=== PATIENT | male | born 1985 | race African-American/Black ===

== ENCOUNTER 2019-07-28 11:59 | Inpatient (IN) | payer MEDICAID ==
[2019-07-28] MEDS: SOD CHLORIDE 0.9% 1,000 ML IV ×3 (13:21→18:36)
[2019-07-28] MEDS: HYDROmorphONE 1 MG/ML SYG IV ×2 (13:21→15:12)
[2019-07-28] MEDS: CEFTRIAXONE 1 GM/50 ML (PMX) 50 ML IVPB (13:21)
[2019-07-28] MEDS: ONDANSETRON 4 MG INJ IV (13:21)
[2019-07-28 13:36] LABS: ADD MAN DIFF? NO
[2019-07-28 13:38] LABS: WHITE BLOOD COUNT 18.3 10^3/ul (4.8-10.8)
[2019-07-28 13:38] LABS: ABNORMAL IP MESSAGE 1; BASOPHILS % 0.2 % (0.0-2.0); EOSINOPHILS % 0.2 % (0.0-7.0); HEMATOCRIT 44.6 % (42.0-52.0); LYMPHOCYTES # 1.7 10^3/ul (0.8-2.9); LYMPHOCYTES % 9.3 % (15.0-51.0); MEAN CORPUSCULAR HEMOGLOBIN 31.7 pg (29.0-33.0); MEAN CORPUSCULAR HGB CONC 33.6 g/dl (32.0-37.0); MEAN CORPUSCULAR VOLUME 94.3 fl (82.0-101.0); MEAN PLATELET VOLUME 10.4 fl (7.4-10.4); MONOCYTE # 1.5 10^3/ul (0.3-0.9); MONOCYTES % 8.4 % (0.0-11.0); NEUTROPHIL # 14.9 10^3/ul (1.6-7.5); NEUTROPHILS % 81.2 % (39.0-77.0); PLATELET COUNT 322 10^3/UL (140-415); POSITIVE DIFF @See below; RED BLOOD COUNT 4.73 10^6/ul (4.70-6.10); RED CELL DISTRIBUTION WIDTH 12.8 % (11.5-14.5)
[2019-07-28 13:56] LABS: ALANINE AMINOTRANSFERASE 30 IU/L (13-69); ALBUMIN 3.8 g/dl (3.3-4.9); ALBUMIN/GLOBULIN RATIO 0.95; ALKALINE PHOSPHATASE 74 IU/L (42-121); ANION GAP 10 (5-13); ASPARTATE AMINO TRANSFERASE 20 IU/L (15-46); BILIRUBIN,INDIRECT 0.6 mg/dl (0-1.1); BILIRUBIN,TOTAL 0.6 mg/dl (0.2-1.3); BLOOD UREA NITROGEN 7 mg/dl (7-20); CALCIUM 9.3 mg/dl (8.4-10.2); CARBON DIOXIDE 27 mmol/L (21-31); CHLORIDE 103 mmol/L (97-110); CREATININE 0.86 mg/dl (0.61-1.24); Estimated GFR > 60 mL/min (>60); GLUCOSE 95 mg/dl (70-220); LIPASE 18 U/L (23-300); POTASSIUM 3.7 mmol/L (3.5-5.1); SODIUM 140 mmol/L (135-144); TOTAL PROTEIN 7.8 g/dl (6.1-8.1)
[2019-07-28] MEDS: SOD CHLORIDE 0.9% 100 ML (14:28)
[2019-07-28] MEDS: IOHEXOL 300MG/ML 150 ML BTL (14:29)
[2019-07-28] MEDS: metroNIDAZOLE 500 MG/NS (PMX) 100 ML IVPB (15:11)
[2019-07-28 15:16] LABS: INR 1.07; PT RATIO 1.1
[2019-07-28 15:17] LABS: PARTIAL THROMBOPLASTIN TIME 30.9 Sec (23.0-35.0)
[2019-07-28] MEDS ORDERED: hydrALAzine 20 MG INJ IV (15:30)
[2019-07-28] MEDS ORDERED: LORAZEPAM 2 MG INJ IV (15:30)
[2019-07-28] MEDS ORDERED: VANCOMYCIN IV PER PHARMACY XX (15:30)
[2019-07-28] MEDS ORDERED: ACETAMINOPHEN 325 MG TAB PO (15:30)
[2019-07-28] MEDS ORDERED: NACL 0.9% 3 ML SYG IV (15:30)
[2019-07-28] MEDS ORDERED: NITROGLYCERIN (SL) 0.4 MG TAB SL (15:30)
[2019-07-28] MEDS ORDERED: ALBUTEROL/IPRATROPIUM (NEB) 3 ML AMP HHN (15:30)
[2019-07-28] MEDS ORDERED: DOCUSATE SODIUM 100 MG CAP PO (15:30)
[2019-07-28] MEDS ORDERED: ONDANSETRON 4 MG INJ IV (15:30)
[2019-07-28] MEDS ORDERED: MAGNESIUM HYDROXIDE 30ML CUP PO (15:30)
[2019-07-28] MEDS: VANCOMYCIN HCL 2 GM in SOD CHLORIDE 0.9% 500 ML IVPB (16:32)
[2019-07-28 16:35] LABS: FREE T4 (FREE THYROXINE) 1.17 ng/dl (0.79-2.35)
[2019-07-28] MEDS: morphine 2 MG INJ IV (17:41)
[2019-07-28] MEDS ORDERED: PIPER-TAZO 3.375 GM IV (PMX) 100 ML IVPB (18:00)
[2019-07-28] MEDS: HYDROCODONE/APAP (5/325) TAB PO (18:36)
[2019-07-28] MEDS ORDERED: MIDAZOLAM 1 MG/ML 2 ML INJ (20:52)
[2019-07-28] MEDS ORDERED: PROPOFOL 20 ML (20:52)
[2019-07-28] MEDS: HYDROmorphONE 0.5 MG/0.5 ML SYG IV (20:56)
[2019-07-28] MEDS ORDERED: DEXAMETHASONE 4 MG/ML 5 ML INJ (22:12)
[2019-07-28] MEDS ORDERED: ONDANSETRON 4 MG INJ (22:12)
[2019-07-28] MEDS ORDERED: SUGAMMADEX SODIUM 200 MG/2 ML VIAL IV (22:12)
[2019-07-28] MEDS ORDERED: METOCLOPRAMIDE 10 MG INJ (22:12)
[2019-07-28] MEDS ORDERED: KETOROLAC 30 MG INJ (22:12)
[2019-07-28] MEDS ORDERED: MEPERIDINE 100 MG INJ (22:28)
[2019-07-29] MEDS: HEPARIN 5,000 UNIT/1 ML VIAL SC ×3 (01:20→20:59)
[2019-07-29] MEDS: PIPER-TAZO 3.375 GM IV (PMX) 100 ML IVPB ×5 (01:21→20:59)
[2019-07-29] MEDS: SOD CHLORIDE 0.9% 1,000 ML IV ×3 (01:21→11:26)
[2019-07-29] MEDS: morphine 2 MG INJ IV ×3 (02:05→11:44)
[2019-07-29] MEDS: VANCOMYCIN HCL 2 GM in SOD CHLORIDE 0.9% 500 ML IVPB ×2 (04:47→16:31)
[2019-07-29 05:47] LABS: HEMATOCRIT 42.3 % (42.0-52.0); HEMOGLOBIN 14.3 g/dl (14.0-18.0); MEAN CORPUSCULAR HEMOGLOBIN 31.9 pg (29.0-33.0); MEAN CORPUSCULAR HGB CONC 33.8 g/dl (32.0-37.0); MEAN CORPUSCULAR VOLUME 94.4 fl (82.0-101.0); MEAN PLATELET VOLUME 10.3 fl (7.4-10.4); PLATELET COUNT 301 10^3/UL (140-415); POSITIVE DIFF @See below; RED BLOOD COUNT 4.48 10^6/ul (4.70-6.10); RED CELL DISTRIBUTION WIDTH 13.1 % (11.5-14.5)
[2019-07-29 05:47] LABS: WHITE BLOOD COUNT 21.3 10^3/ul (4.8-10.8)
[2019-07-29 05:54] LABS: ADD MAN DIFF? YES
[2019-07-29 06:02] LABS: HEMOGLOBIN A1C 5.1 % (0-5.9)
[2019-07-29 06:30] LABS: ANION GAP 8 (5-13); CALCIUM 8.6 mg/dl (8.4-10.2); CARBON DIOXIDE 25 mmol/L (21-31); CHLORIDE 107 mmol/L (97-110); CREATININE 0.75 mg/dl (0.61-1.24); Estimated GFR > 60 mL/min (>60); GLUCOSE 133 mg/dl (70-220); MAGNESIUM 2.2 mg/dl (1.7-2.5); PHOSPHORUS 3.1 mg/dl (2.5-4.9); POTASSIUM 4.5 mmol/L (3.5-5.1); SODIUM 140 mmol/L (135-144)
[2019-07-29 06:31] LABS: BLOOD UREA NITROGEN 9 mg/dl (7-20)
[2019-07-29 06:41] LABS: THYROID STIMULATING HORMONE 0.955 MIU/L (0.465-4.680)
[2019-07-29 06:44] LABS: CHOL/HDL RATIO 3.4 RATIO; HDL CHOLESTEROL 41 mg/dl (28-63); LDL CHOLESTEROL,CALCULATED 82 mg/dl; TRIGLYCERIDES 90 mg/dl (0-149)
[2019-07-29 06:44] LABS: CHOLESTEROL 141 mg/dl (100-200)
[2019-07-29 07:30] LABS: ADD UMIC YES; UR ASCORBIC ACID NEGATIVE (NEGATIVE); UR BACTERIA FEW /HPF (NONE SEEN); UR BILIRUBIN (Dip) NEGATIVE (NEGATIVE); UR BLOOD (Dip) NEGATIVE (NEGATIVE); UR CLARITY CLEAR (CLEAR); UR COLOR YELLOW (YELLOW); UR GLUCOSE (Dip) NEGATIVE (NEGATIVE); UR KETONES (Dip) 2+ mg/dL (NEGATIVE); UR LEUKOCYTE ESTERASE (Dip) NEGATIVE Leu/ul (NEGATIVE); UR MUCUS FEW /HPF (NONE SEEN); UR NITRITE (Dip) NEGATIVE (NEGATIVE); UR RBC 3 /HPF (0-5); UR SPECIFIC GRAVITY (Dip) 1.046 (1.003-1.030); UR TOTAL PROTEIN (Dip) 1+ mg/dl (NEGATIVE); UR UROBILINOGEN (Dip) NEGATIVE (NEGATIVE); UR WBC 2 /HPF (0-5)
[2019-07-29 07:35] LABS: ANISOCYTOSIS 1+ (0-0); BAND NEUTROPHILS #M 3.4 10^3/ul (0.0-0.6); BAND NEUTROPHILS % (M) 16 % (0-4); BURR CELLS 2+ (0-0); LYMPHOCYTES #M 0.8 10^3/ul (0.8-2.9); LYMPHOCYTES % (M) 4 % (15-51); MONOCYTE #M 0.2 10^3/ul (0.3-0.9); MONOCYTES % (M) 1 % (0-11); PLATELET ESTIMATE NORMAL; POIKILOCYTOSIS 2+ (0-0); POLYCHROMASIA 1+ (0-0); REACTIVE LYMPHOCYTES #M 0.2 10^3/ul (0.0-0.0); REACTIVE LYMPHOCYTES% (M) 1 % (0-0); SEG NEUT #M 17.3 10^3/ul (1.6-7.5); SEGMENTED NEUTROPHILS (M) % 78 % (39-77); SMUDGE%M 1 % (0-0)
[2019-07-29] MEDS: HYDROCODONE/APAP (5/325) TAB PO (13:11)
[2019-07-29] MEDS: morphine 4 MG/ML VIAL IV (15:23)
[2019-07-29] MEDS: KETOROLAC 30 MG INJ IV ×2 (17:49→22:02)
[2019-07-30] MEDS: PIPER-TAZO 3.375 GM IV (PMX) 100 ML IVPB ×4 (02:43→20:31)
[2019-07-30 03:17] LABS: ADD MAN DIFF? NO
[2019-07-30 03:18] LABS: BASOPHILS % 0.2 % (0.0-2.0); HEMATOCRIT 38.5 % (42.0-52.0); HEMOGLOBIN 12.8 g/dl (14.0-18.0); LYMPHOCYTES % 10.7 % (15.0-51.0); MEAN CORPUSCULAR HEMOGLOBIN 31.6 pg (29.0-33.0); MEAN CORPUSCULAR HGB CONC 33.2 g/dl (32.0-37.0); MEAN CORPUSCULAR VOLUME 95.1 fl (82.0-101.0); MEAN PLATELET VOLUME 10.7 fl (7.4-10.4); MONOCYTE # 1.3 10^3/ul (0.3-0.9); MONOCYTES % 6.6 % (0.0-11.0); NEUTROPHIL # 15.6 10^3/ul (1.6-7.5); NEUTROPHILS % 81.9 % (39.0-77.0); PLATELET COUNT 325 10^3/UL (140-415); RED BLOOD COUNT 4.05 10^6/ul (4.70-6.10); RED CELL DISTRIBUTION WIDTH 12.9 % (11.5-14.5)
[2019-07-30 03:36] LABS: ANION GAP 5 (5-13); BLOOD UREA NITROGEN 12 mg/dl (7-20); CALCIUM 8.6 mg/dl (8.4-10.2); CARBON DIOXIDE 27 mmol/L (21-31); CHLORIDE 108 mmol/L (97-110); CREATININE 0.82 mg/dl (0.61-1.24); Estimated GFR > 60 mL/min (>60); GLUCOSE 126 mg/dl (70-220); SODIUM 140 mmol/L (135-144)
[2019-07-30 04:02] LABS: VANCOMYCIN,TROUGH 8.3 ug/ml (10.0-20.0)
[2019-07-30] MEDS: VANCOMYCIN HCL 2 GM in SOD CHLORIDE 0.9% 500 ML IVPB (04:06)
[2019-07-30] MEDS: KETOROLAC 30 MG INJ IV ×2 (04:06→10:00)
[2019-07-30] MEDS: HYDROmorphONE 0.5 MG/0.5 ML SYG IV ×3 (07:54→14:21)
[2019-07-30] MEDS: HEPARIN 5,000 UNIT/1 ML VIAL SC ×2 (08:37→20:34)
[2019-07-30] MEDS: HYDROCODONE/APAP (5/325) TAB PO (10:15)
[2019-07-30] MEDS: VANCOMYCIN 1.5 GM/NS 250 ML 250 ML IVPB ×2 (11:32→21:17)
[2019-07-30] MEDS ORDERED: VANCOMYCIN HCL 2 GM in SOD CHLORIDE 0.9% 500 ML IVPB (12:00)
[2019-07-30] MEDS ORDERED: HYDROmorphONE 1 MG/ML SYG IV (16:00)
[2019-07-30] MEDS: HYDROCODONE/APAP (7.5/325) TAB PO ×2 (16:04→20:16)
[2019-07-30] MEDS: HYDROmorphONE 1 MG/ML SYG IV ×2 (18:30→22:00)
[2019-07-31] MEDS: PIPER-TAZO 3.375 GM IV (PMX) 100 ML IVPB ×2 (03:31→09:29)
[2019-07-31] MEDS: HYDROmorphONE 1 MG/ML SYG IV ×6 (03:31→23:57)
[2019-07-31] MEDS: VANCOMYCIN 1.5 GM/NS 250 ML 250 ML IVPB ×2 (04:15→12:11)
[2019-07-31] MEDS: HYDROCODONE/APAP (7.5/325) TAB PO ×2 (04:47→21:44)
[2019-07-31 05:53] LABS: ADD MAN DIFF? NO
[2019-07-31 06:02] LABS: BASOPHIL # 0.1 10^3/ul (0.0-0.1); BASOPHILS % 0.5 % (0.0-2.0); EOSINOPHILS # 0.1 10^3/ul (0.0-0.5); EOSINOPHILS % 0.8 % (0.0-7.0); HEMATOCRIT 41.5 % (42.0-52.0); HEMOGLOBIN 13.5 g/dl (14.0-18.0); LYMPHOCYTES # 3.3 10^3/ul (0.8-2.9); MEAN CORPUSCULAR HEMOGLOBIN 31.3 pg (29.0-33.0); MEAN CORPUSCULAR HGB CONC 32.5 g/dl (32.0-37.0); MEAN CORPUSCULAR VOLUME 96.1 fl (82.0-101.0); MEAN PLATELET VOLUME 10.3 fl (7.4-10.4); MONOCYTES % 9.8 % (0.0-11.0); NEUTROPHIL # 5.3 10^3/ul (1.6-7.5); NEUTROPHILS % 54.4 % (39.0-77.0); PLATELET COUNT 343 10^3/UL (140-415); RED BLOOD COUNT 4.32 10^6/ul (4.70-6.10)
[2019-07-31 06:02] LABS: WHITE BLOOD COUNT 9.7 10^3/ul (4.8-10.8)
[2019-07-31 07:41] LABS: ANION GAP 5 (5-13); BLOOD UREA NITROGEN 14 mg/dl (7-20); CALCIUM 8.3 mg/dl (8.4-10.2); CARBON DIOXIDE 25 mmol/L (21-31); CHLORIDE 111 mmol/L (97-110); CREATININE 0.98 mg/dl (0.61-1.24); Estimated GFR > 60 mL/min (>60); GLUCOSE 94 mg/dl (70-220); POTASSIUM 3.7 mmol/L (3.5-5.1); SODIUM 141 mmol/L (135-144)
[2019-07-31] MEDS: HEPARIN 5,000 UNIT/1 ML VIAL SC ×2 (09:32→20:15)
[2019-07-31 12:02] LABS: VANCOMYCIN,TROUGH 17.1 ug/ml (10.0-20.0)
[2019-07-31] MEDS: HYDROCODONE/APAP (5/325) TAB PO (13:16)
[2019-07-31] MEDS ORDERED: LOPERAMIDE 2 MG CAP PO (14:30)
[2019-08-01] MEDS: HYDROmorphONE 1 MG/ML SYG IV ×3 (04:32→15:59)
[2019-08-01 05:49] LABS: ADD MAN DIFF? NO
[2019-08-01] MEDS: LEVOFLOXACIN 750 MG TABLET PO (06:01)
[2019-08-01 06:05] LABS: WHITE BLOOD COUNT 8.8 10^3/ul (4.8-10.8)
[2019-08-01 06:05] LABS: BASOPHILS % 0.3 % (0.0-2.0); EOSINOPHILS # 0.1 10^3/ul (0.0-0.5); EOSINOPHILS % 1.1 % (0.0-7.0); LYMPHOCYTES # 3.3 10^3/ul (0.8-2.9); LYMPHOCYTES % 37.7 % (15.0-51.0); MEAN CORPUSCULAR HEMOGLOBIN 31.6 pg (29.0-33.0); MEAN CORPUSCULAR HGB CONC 33.3 g/dl (32.0-37.0); MEAN CORPUSCULAR VOLUME 94.7 fl (82.0-101.0); MEAN PLATELET VOLUME 10.5 fl (7.4-10.4); MONOCYTE # 0.9 10^3/ul (0.3-0.9); MONOCYTES % 10.4 % (0.0-11.0); NEUTROPHIL # 4.4 10^3/ul (1.6-7.5); NEUTROPHILS % 49.8 % (39.0-77.0); PLATELET COUNT 352 10^3/UL (140-415); RED BLOOD COUNT 4.75 10^6/ul (4.70-6.10); RED CELL DISTRIBUTION WIDTH 12.7 % (11.5-14.5)
[2019-08-01 06:25] LABS: ANION GAP 6 (5-13); BLOOD UREA NITROGEN 10 mg/dl (7-20); CALCIUM 8.9 mg/dl (8.4-10.2); CARBON DIOXIDE 27 mmol/L (21-31); CHLORIDE 106 mmol/L (97-110); CREATININE 0.91 mg/dl (0.61-1.24); Estimated GFR > 60 mL/min (>60); GLUCOSE 93 mg/dl (70-220); POTASSIUM 3.5 mmol/L (3.5-5.1); SODIUM 139 mmol/L (135-144)
[2019-08-01] MEDS: HYDROCODONE/APAP (7.5/325) TAB PO ×2 (08:32→13:55)
[2019-08-01] MEDS: HEPARIN 5,000 UNIT/1 ML VIAL SC (08:57)
== END 2019-08-01 16:31 | disposition home or self-care (01) | DRG 395 ==
LOC: PP2 14:49 → FTE 11:59
PROC: 0D9Q0ZX Drainage of Anus, Open Approach, Diagnostic (ICD-10-PCS; principal; 2019-07-28 21:22)
DX: K61.1 Rectal abscess (principal); D72.829 Elevated white blood cell count, unspecified; E66.9 Obesity, unspecified; Z68.38 Body mass index [BMI] 38.0-38.9, adult; Z87.891 Personal history of nicotine dependence
CPT/HCPCS: 36415; 74177; 80048; 80053; 80061; 80202; 81001; 83036; 83690; 83735; 84100; 84439; 84443; 85025; 85610; 85730; 87040-91; 87070; 87075; 87102; 87116; 96374; 96375; 99285-25